=== PATIENT | female | born 1975 | race Caucasian/White ===

== ENCOUNTER 2019-01-24 18:56 | Emergency (ER) | payer OTHER ==
[~2019-01-24] VITALS: Ht 157.5 cm; Wt 81.6 kg
== END 2019-01-24 21:10 | disposition home or self-care (01) ==
LOC: ER 18:56
DX: N39.0 Urinary tract infection, site not specified (principal)

== ENCOUNTER 2019-03-03 12:03 | Emergency (ER) | payer OTHER ==
[~2019-03-03] VITALS: Ht 157.5 cm; Wt 81.6 kg
[2019-03-03] MEDS ORDERED: FLONASE16 GM NASAL (13:01)
[2019-03-03] MEDS ORDERED: MUCINEX1200 MG PO (13:01)
[2019-03-03] MEDS ORDERED: ZITHROMAX500 MG PO (13:01)
== END 2019-03-03 13:30 | disposition home or self-care (01) ==
LOC: ER 12:03
DX: J06.9 Acute upper respiratory infection, unspecified (principal)

== ENCOUNTER 2019-05-28 13:20 | Emergency (ER) | payer OTHER ==
[~2019-05-28] VITALS: Ht 157.5 cm; Wt 79.4 kg
[~2019-05-28 13:20] MED LIST: FLONASE16 GM NASAL; MUCINEX1200 MG PO; ZITHROMAX500 MG PO
== END 2019-05-28 18:28 | disposition home or self-care (01) ==
LOC: ER 13:20
DX: H66.91 Otitis media, unspecified, right ear (principal)

== ENCOUNTER 2019-06-09 14:05 | Emergency (ER) | payer OTHER ==
[~2019-06-09] VITALS: Ht 157.5 cm; Wt 79.4 kg
== END 2019-06-09 19:33 | disposition home or self-care (01) ==
LOC: ER 14:05
DX: J11.1 Influenza due to unidentified influenza virus with other respiratory manifestations (principal); B96.0 Mycoplasma pneumoniae [M. pneumoniae] as the cause of diseases classified elsewhere

== ENCOUNTER 2022-06-24 15:46 | Emergency (ER) | payer OTHER ==
[~2022-06-24] VITALS: Ht 157.5 cm; Wt 79.4 kg
[2022-06-24] MEDS ORDERED: DEXAMETHASONE4 MG PO (21:54)
[2022-06-24] MEDS ORDERED: CYCLOBENZAPRINE10 MG PO (21:54)
== END 2022-06-24 22:08 | disposition home or self-care (01) ==
LOC: ER 15:46
DX: M54.50 Low back pain, unspecified (principal); K57.30 Diverticulosis of large intestine without perforation or abscess without bleeding; Z88.6 Allergy status to analgesic agent